=== PATIENT | female | born 1995 | race Caucasian/White ===

== ENCOUNTER 2016-08-07 07:25 | Emergency (ER) | payer OTHER, BC ==
[~2016-08-07] VITALS: Ht 149.9 cm; Wt 52.3 kg
[2016-08-07 07:27] VITALS: BP 126/73; TEMP 98.4
[2016-08-07] MEDS ORDERED: TRI-PREVIFEM1 TA1 PO (07:32)
[2016-08-07] MEDS ORDERED: NORCO 325 MG-51 TAB PO (08:45)
[2016-08-07 09:23] VITALS: PULSE 78
== END 2016-08-07 09:23 | disposition home or self-care (01) ==
LOC: COL.ER 07:25
DX: S00.83XA Contusion of other part of head, initial encounter (principal); W55.22XA Struck by cow, initial encounter; Y93.89 Activity, other specified; R40.2413 Glasgow coma scale score 13-15, at hospital admission

== ENCOUNTER 2017-07-24 14:24 | Outpatient (RCR) | payer OTHER ==
[~2017-07-24 14:24] MED LIST: FLEXERIL 1010 MG/TAB PO; NAPROSYN500 MG PO; NORCO 325 MG-51 TAB PO; TRI-PREVIFEM1 TA1 PO
== END 2017-10-12 | disposition home or self-care (01) ==
LOC: WSOH
DX: S39.012A Strain of muscle, fascia and tendon of lower back, initial encounter (principal); X50.0XXA Overexertion from strenuous movement or load, initial encounter; Y92.214 College as the place of occurrence of the external cause; Y99.0 Civilian activity done for income or pay; Z79.899 Other long term (current) drug therapy

== ENCOUNTER 2018-06-19 11:06 | Outpatient (RCR) | payer OTHER | END 2018-09-17 | disposition home or self-care (01) | LOC: WSOH | DX: S20.219A Contusion of unspecified front wall of thorax, initial encounter (principal); R07.89 Other chest pain; W55.29XA Other contact with cow, initial encounter; Y93.K2 Activity, milking an animal; Y92.214 College as the place of occurrence of the external cause; Y99.0 Civilian activity done for income or pay ==